=== PATIENT | male | born 1940 | race Caucasian/White ===

== ENCOUNTER → 2017-03-22 | Outpatient (CLI) | payer OTHER ==
[~2017-03-22] VITALS: Ht 175.3 cm; Wt 72.6 kg
[~2017-03-22] MED LIST: ATROVENT HFA14 GM NASAL; BISACODYL SUPP10 MG RECTAL; MIRALAX17 GM PO; SENNA S TABLET1 EACH PO; SERTRALINE HCL50 MG PO; TYLENOL EXTRA500 MG PO; XANAX 0.25 MG0.25 MG PO; ZOLOFT25 MG PO
--- NOTE | ~2017-03-22 | P ---
[facility] [place] [address] PROCEDURE REPORT Name: BOLIVARLAURA L Room #: REG [facility]#: [id number] Admission: 03/22/17 Attend Phys: Bandar Uriarte Discharge: Date of : 40 Report #: [id number] THIS REPORT FOR: //name// CC: Bharath Thomas MD DATE OF SERVICE: 03/22/2017 PROCEDURE PERFORMED: Upper endoscopy with PEG tube placement. HISTORY OF PRESENT ILLNESS: The patient is a 76-year-old male with a history of Lewy body dementia and is having more difficulty with maintaining nutrition due to dysphagia and possible aspiration. Plan is for PEG tube placement. PROCEDURE: The risks and benefits of the procedure were explained to the patient's , those risks including but not limited to bleeding, perforation, the risk of sedation as well as potential risk for infection. She understood these risks and gave informed consent. Sedation was given using propofol per Anesthesia. Zosyn was also given prior to the procedure. Next, using a standard Fujinon upper endoscope, the scope was placed in the patient's mouth and advanced under direct vision through the esophagus, stomach and into the second portion of the duodenum. The larynx was normal in appearance. There were some white plaques noted in the upper and mid esophagus, which may represent candidiasis. The GE junction was normal. No evidence of esophagitis, reflux esophagitis. Upon entering the stomach, a small hiatal hernia was noted. Overall, the gastric mucosa was normal. The pylorus was normal and patent. The duodenal bulb, first and second portion were all normal. The scope was then brought back up into the patient's stomach and the stomach was insufflated with air. Good transillumination was noted through the anterior abdominal wall. This area was then marked and the skin was cleaned with a chlorhexidine solution. Next, a sterile drape was put in place. Next, Xylocaine was used as a local anesthetic. Next, using a seeker needle, the needle was advanced through the skin into the gastric lumen under direct vision without difficulty. The needle was then removed. Next, a 1 cm transverse incision was made through the skin. Next, a catheter needle was advanced through the mid portion of the incision, again into the gastric lumen under direct vision. The needle was removed leaving the catheter in place. Next, a blue guidewire was inserted through the catheter and this was grasped with a snare through the endoscope and the scope was then brought back up through the patient's mouth. Next, a 20-[place] Bard PEG tube was secured to the blue guidewire and using a pull technique was put into position without difficulty. Next, the scope was reintroduced into the patient's stomach. There was no evidence of bleeding and the PEG tube was noted to be in good position in the mid body of the stomach. At this point, the scope was then withdrawn and the procedure terminated. The [address] [address] PROCEDURE REPORT Name: LAURA LUTZ Room #: REG [facility]#: [id number] Admission: 03/22/17 Attend Phys: Bandar Uriarte Discharge: Date of : 40 Report #: [id number] PEG tube was then secured to the anterior abdominal wall. The patient tolerated the procedure well. IMPRESSION: 1. Possible Ramandeep esophagitis. 2. Small hiatal hernia. 3. Successful PEG tube placement. RECOMMENDATIONS: 1. Okay to start using PEG tube in the near future. 2. We will discuss treatment of possible candidiasis. Thank you for allowing me to participate in his care. <ELECTRONICALLY SIGNED> By: Bandar Quevedo MD 03/24/17 [id number] Bandar Quevedo MD /nt
== END | disposition home or self-care (01) ==
LOC: GI 10:57
DX: K22.8 Other specified diseases of esophagus (principal); K44.9 Diaphragmatic hernia without obstruction or gangrene; G31.83 Neurocognitive disorder with Lewy bodies; F32.89 Other specified depressive episodes; Z87.891 Personal history of nicotine dependence; Z85.46 Personal history of malignant neoplasm of prostate; Z98.890 Other specified postprocedural states; Z88.8 Allergy status to other drugs, medicaments and biological substances
CPT/HCPCS: 62110; 62900